=== PATIENT | female | born 1955 | race Caucasian/White ===

== ENCOUNTER → 2016-12-10 | Outpatient (CLI) | payer BC ==
--- NOTE | 2016-12-10 17:21 | BD ---
EXAMINATION TYPE: MG DEXA axial skeleton. DATE OF EXAM: 12/10/2016 1:32 PM COMPARISON: NONE CLINICAL HISTORY: 61-year-old female screening for osteoporosis Height: 5 FT 5 IN Weight: 160 FRAX RISK QUESTIONS: Alcohol (3 or more units per day): NO Family History (Parent hip fracture): NO Glucocorticoids (More than 3mos): NO (Ex: prednisone, prednisolone, methylprednisolone, dexamethasone, and hydrocortisone). History of Fracture in Adulthood: NO Secondary Osteoporosis: 1. Type 1 Diabetes: NO 2. Hyperthyroidism: NO 3. Menopause before 45: NO 4. Malnutrition: NO 5. Chronic liver disease: NO Rheumatoid Arthritis: NO Current Tobacco Use: YES RISK FACTORS HISTORY OF: Smoke tobacco: YES Active: YES Postmenopausal woman: AGE 52 MEDICATIONS: Additional Medications: RAMAPRIL, ZOLOFT, Additional History: EXAM MEASUREMENTS: Bone mineral densitometry was performed using the [employer] System. Bone mineral density as measured about the Lumbar spine is: ----- L1-L4(G/cm2): 1.240 T Score Values are as follows: ----- L2: -0.2 ----- L3: 1.0 ----- L4: 1.0 ----- L1-L4: 0.5 BASELINE Bone mineral density about the R hip (g/cm2): 0.955 Bone mineral density about the L hip (g/cm2): 0.888 T Score values are as follows: -----R Neck: -0.6 -----L Neck: -1.1 -----R Total: -0.1 -----L Total: -0.3 BASELINE IMPRESSION: Osteopenia as indicated by T score values within the left hip. There is slightly increased risk of fracture and the patient may be considered for treatment. Re-Screen 2-5 years. NOTE: T-SCORE=SD OF THE YOUNG ADULT MEAN.
--- NOTE | 2016-12-11 11:34 | MM ---
Reason for exam: screening (asymptomatic). Last mammogram was performed 1 year and 1 month ago. History: Patient is postmenopausal. Took hormonal contraceptives for 5 years beginning at age 25. Physical Findings: A clinical breast exam by your physician is recommended on an annual basis and results should be correlated with mammographic findings. MG Screening Mammo w CAD Bilateral CC and MLO view(s) were taken. Prior study comparison: November 14, 2015, bilateral MG screening mammo w CAD. October 16, 2014, bilateral MG screening mammo w CAD. There are scattered fibroglandular densities. There is no discrete abnormality. No significant changes when compared with prior studies. ASSESSMENT: Negative, BI-RAD 1 RECOMMENDATION: Routine screening mammogram of both breasts in 1 year.
== END | disposition home or self-care (01) ==
LOC: RADMAMWWP 12:49
PROVIDERS: ATTEND Family Medicine
DX: Z12.31 Encounter for screening mammogram for malignant neoplasm of breast (principal); M85.852 Other specified disorders of bone density and structure, left thigh
CPT/HCPCS: 77080; G0202

== ENCOUNTER → 2017-12-17 | Outpatient (CLI) | payer BC ==
--- NOTE | 2017-12-18 10:12 | MM ---
Reason for exam: screening (asymptomatic). Last mammogram was performed 1 year ago. History: Patient is postmenopausal. Took hormonal contraceptives for 5 years beginning at age 25. Physical Findings: A clinical breast exam by your physician is recommended on an annual basis and results should be correlated with mammographic findings. MG Screening Mammo w CAD Bilateral CC and MLO view(s) were taken. Prior study comparison: December 10, 2016, bilateral MG screening mammo w CAD. November 14, 2015, bilateral MG screening mammo w CAD. There are scattered fibroglandular densities. There is no discrete abnormality. No significant changes when compared with prior studies. ASSESSMENT: Negative, BI-RAD 1 RECOMMENDATION: Routine screening mammogram of both breasts in 1 year.
== END | disposition home or self-care (01) ==
LOC: RADMAMWWP 13:00
PROVIDERS: ATTEND Family Medicine
DX: Z12.31 Encounter for screening mammogram for malignant neoplasm of breast (principal)
CPT/HCPCS: 77067

== ENCOUNTER → 2018-12-21 | Outpatient (CLI) | payer BC ==
--- NOTE | 2018-12-21 15:33 | CT ---
EXAMINATION TYPE: CT sinus wo con DATE OF EXAM: 12/21/2018 COMPARISON: None HISTORY: 63-year-old female Allergic rhinitis. CT DLP: 638 mGycm Automated exposure control for dose reduction was used. TECHNIQUE: Noncontrast axial views of the paranasal sinuses were obtained. Coronal reconstructions pe rformed. FINDINGS: PARANASAL SINUSES: Trace mucosal thickening medial wall right maxillary sinus and along the floor of the left maxillary sinus. The fluid within the left sphenoid sinus. Frontal and ethmoid sinuses are well pneumatized. Reactive rebel- osteogenesis is not seen. There is no destruction of the osseous milligan of the paranasal sinuses. THE NASAL CAVITY: The osteomeatal complexes are patent. Very slight leftward nasal septal deviation. There is an 8 mm area of rounded prominence in the right parasellar region. Otherwise, the imaged bra in and orbits are normal in appearance. Mastoid air cells and middle ear cavities are well pneumatized. Reformatted images confirm above findings. IMPRESSION: 1. Correlate for acute on chronic left sphenoid sinusitis given frothy fluid. 2. Minimal mucosal thickening within the bilateral maxillary sinuses. No other significant paranasal sinus disease. 3. 8mm area of rounded prominence in the right parasellar region. Recommend MRI brain with contrast a nd MR angiography to further evaluate. An aneurysm is in the differential.
== END | disposition home or self-care (01) ==
LOC: RADCTMAIN 14:35
PROVIDERS: ATTEND Family Medicine
DX: J32.0 Chronic maxillary sinusitis (principal)
CPT/HCPCS: 70486

== ENCOUNTER → 2018-12-29 | Outpatient (CLI) | payer BC ==
--- NOTE | 2018-12-29 16:27 | MR ---
EXAMINATION TYPE: MR angio head wo con DATE OF EXAM: 12/29/2018 COMPARISON: CT sinus dated 12/21/2018 HISTORY: abnormal findings CT scan TECHNIQUE: Time of flight images focusing on the [place] were performed without contrast.. 2-D and 3-D postprocessing imaging is performed. FINDINGS: The previously seen prominence of the right parasellar region represent slight medial devia tion of the cavernous portion of the right internal carotid artery. No focal aneurysm is seen at this location. The left vertebral artery is dominant. Basilar artery is patent and unremarkable. Posterio r cerebral arteries demonstrate no occlusion or hemodynamically significant stenosis. Posterior circu lation appears intact and unremarkable. Posterior communicating arteries are present. However there i s a 1 to 2 mm aneurysm of the left A1 segment of the anterior cerebral artery versus a prominent infu ndibulum as the diminutive or congenitally absent anterior communicating artery is not definitively s een. This is marked on the thick slab image 94 and on the 3-D reformats. Within the remainder of the visualized major arterial intracranial vasculature no focal aneurysm or hemodynamically significant s tenosis is seen. No evidence of dissection. 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
== END | disposition home or self-care (01) ==
LOC: RADMRIMAIN 13:22
PROVIDERS: ATTEND Family Medicine
DX: R93.89 Abnormal findings on diagnostic imaging of other specified body structures (principal)
CPT/HCPCS: 70544

== ENCOUNTER → 2019-04-07 | Outpatient (CLI) | payer BC ==
--- NOTE | 2019-04-12 09:40 | MM ---
Reason for exam: screening (asymptomatic). Last mammogram was performed 1 year and 4 months ago. History: Patient is postmenopausal. Took hormonal contraceptives for 5 years beginning at age 25. Physical Findings: A clinical breast exam by your physician is recommended on an annual basis and results should be correlated with mammographic findings. MG Screening Mammo w CAD Bilateral CC and MLO view(s) were taken. Prior study comparison: December 17, 2017, bilateral MG screening mammo w CAD. December 10, 2016, bilateral MG screening mammo w CAD. No significant changes when compared with prior studies. ASSESSMENT: Benign, BI-RAD 2 RECOMMENDATION: Routine screening mammogram of both breasts in 1 year.
== END | disposition home or self-care (01) ==
LOC: RADMAMWWP 10:08
PROVIDERS: ATTEND Family Medicine
DX: Z12.31 Encounter for screening mammogram for malignant neoplasm of breast (principal)
CPT/HCPCS: 77067

== ENCOUNTER → 2020-09-07 | Outpatient (CLI) | payer BC ==
--- NOTE | 2020-09-10 10:06 | MM ---
Reason for exam: screening (asymptomatic). Last mammogram was performed 1 year and 5 months ago. History: Patient is postmenopausal. Family history of breast cancer in cousin at age 60. Took hormonal contraceptives for 5 years beginning at age 25. Physical Findings: A clinical breast exam by your physician is recommended on an annual basis and results should be correlated with mammographic findings. MG 3D Screening Mammo W/Cad Bilateral CC and MLO view(s) were taken. Prior study comparison: April 07, 2019, bilateral MG screening mammo w CAD. December 17, 2017, bilateral MG screening mammo w CAD. There are scattered fibroglandular densities. Stable benign calcifications. There is no discrete abnormality. No significant changes when compared with prior studies. ASSESSMENT: Benign, BI-RAD 2 RECOMMENDATION: Routine screening mammogram of both breasts in 1 year.
== END | disposition home or self-care (01) ==
LOC: RADMAMWWP 13:40
PROVIDERS: ATTEND Family Medicine
DX: Z12.31 Encounter for screening mammogram for malignant neoplasm of breast (principal)
CPT/HCPCS: 77063; 77067

== ENCOUNTER → 2023-09-10 | Outpatient (CLI) | payer MEDICARE ==
--- NOTE | 2023-09-10 20:25 | BD ---
EXAMINATION TYPE: Axial Bone Density DATE OF EXAM: 09/10/2023 CLINICAL HISTORY: 68 years old Female. ICD-10 CODE: Z78.0 ASYMP [place]IG[place] STATE Height: 65.2 Weight: 141.3 FRAX RISK QUESTIONS: Alcohol (3 or more units per day): no Family History (Parent hip fracture): no Glucocorticoids (More than 3mos): no (Ex: prednisone, prednisolone, methylprednisolone, dexamethasone, and hydrocortisone). History of Fracture in Adulthood: no Secondary Osteoporosis: 1. Type 1 Diabetes: no 2. Hyperthyroidism: no 3. Menopause before 45: no 4. Malnutrition: no 5. Chronic liver disease: no Rheumatoid Arthritis: no Current Tobacco Use: yes RISK FACTORS HISTORY OF: Hip Fracture (Right/Left): no Spine Fracture: no History of Wrist Fracture: no Surgery to Spine/Hip(right/left)/Wrist (right/left): no MEDICATIONS: Thyroid Medications: no Osteoporosis Medications: no EXAM MEASUREMENTS: Bone mineral densitometry was performed using the [employer]. Bone mineral density as measured about the Lumbar spine is: ----- L1-L4(G/cm2): 1.181 T Score Values are as follows: ----- L1: -0.4 ----- L2: 0.0 ----- L3: 0.5 ----- L4: -0.3 ----- L1-L4: 0.0 Z Score Values are as follows: ----- L1: 1.3 ----- L2: 1.7 ----- L3: 2.2 ----- L4: 1.3 ----- L1-L4: 1.6 Bone mineral density has: decreased -4.8 since the study of 12/10/2016 Bone mineral density about the R hip (g/cm2): 0.972 Bone mineral density about the L hip (g/cm2): 0.951 T Score values are as follows: -----R Neck: -0.8 -----L Neck: -1.4 -----R Total: -.3 -----L Total: -0.4 Z Score values are as follows: -----R Neck: 0.7 -----L Neck: 0.2 -----R Total: 1.0 -----L Total: 0.8 Bone mineral density has: decreased -2.2 since the study of 12/10/2016 FRAX%s: The graph provided illustrates a 8.8%maricel for a major osteoporotic fx and a 1.6%maricel for th e hips probability for fx in 10 years time. IMPRESSION: Osteopenia (T Score between -2.5 and -1). There is slightly increased risk of fracture and the patient may be considered for treatment. Re-Screen 2-5 years. NOTE: T-SCORE=SD OF THE YOUNG ADULT MEAN.
--- NOTE | 2023-09-11 09:10 | MM ---
Reason for Exam: Screening (asymptomatic). Last mammogram was performed 1 year(s) and 9 month(s) ago. Patient History: Menarche at age 14. First Full-Term at age 31. Postmenopausal. Hormonal Contraceptives for 5 years from age 25 until age 30. Maternal cousin had breast cancer, age 60. Risk Values: Pauline 5 year model risk: 1.9%. NCI Lifetime model risk: 6.7%. Prior Study Comparison: 04/07/2019 Bilateral Screening Mammogram, [facility]. 09/07/2020 Bilateral Screening Mammogram, [facility]. 12/30/2021 Bilateral MG 3D screening mammo w/cad, [facility]. Tissue Density: There are scattered fibroglandular densities. Findings: Analyzed By CAD. There is no suspicious group of microcalcifications or new suspicious mass in either breast. Overall Assessment: Benign, BI-RAD 2 Management: Screening Mammogram of both breasts in 1 year. . Patient should continue monthly self-breast exams. A clinical breast exam by your physician is recommended on an annual basis. This exam should not preclude additional follow-up of suspicious palpable abnormalities. Note on Pauline scores and lifetime risk: 1. A Pauline score greater than 3% is considered moderate risk. If this is the case, consider specialist referral to assess eligibility for a risk reducing agent. 2. If overall lifetime risk for the development of breast cancer is 20% or higher, the patient may qualify for future screening with alternating mammogram and breast MRI. Electronically signed and approved by: Vinicius Child M.D. Radiologis
== END | disposition home or self-care (01) ==
LOC: RADBDWWP 14:47
PROVIDERS: ATTEND Family Medicine
DX: Z12.31 Encounter for screening mammogram for malignant neoplasm of breast (principal); M85.852 Other specified disorders of bone density and structure, left thigh; Z78.0 Asymptomatic menopausal state; Z80.3 Family history of malignant neoplasm of breast
CPT/HCPCS: 77063; 77067; 77080